=== PATIENT | female | born 1945 | race Caucasian/White ===

== ENCOUNTER 2022-04-04 11:02 | Inpatient (IN) | payer MEDICARE, MEDICAID ==
[~2022-04-04] VITALS: Ht 162.6 cm; Wt 63.5 kg
[2022-04-04] MEDS ORDERED: MAGNESIUM/ALUMINUM HYDROXIDE/SIMETHICONE 30ML UDC PO ONE (11:30)
[2022-04-04] MEDS ORDERED: VISCOUS LIDOCAINE 2% 15 ML UDC MM ONE (11:30)
[2022-04-04] MEDS ORDERED: ONDANSETRON HCL 4MG/2ML INJ IV ONE (11:30)
[2022-04-04] MEDS ORDERED: PANTOPRAZOLE SODIUM 40 MG/VIAL IV NR (12:00)
[2022-04-04 12:06] LABS: BASOPHILS % 0.1 % (0.0-2.0); EOSINOPHILS % 0.7 % (0.0-5.0); HEMATOCRIT. 35.4 % (36.0-48.0); HEMOGLOBIN. 11.9 g/dL (12.0-16.0); LYMPHOCYTES % 13.7 % (20.0-50.0); MEAN CORPUSCULAR HEMOGLOBIN 33.2 pg (28.0-32.0); MEAN CORPUSCULAR VOLUME 98.5 fL (81.0-99.0); MEAN PLATELET VOLUME 8.1 fl (7.4-10.4); MONOCYTES % 5.3 % (2.0-8.0); NEUTROPHILS % 80.2 % (40.0-76.0); PLATELET 188 x1000/uL (130-400); RED BLOOD CELL COUNT 3.59 mill/uL (4.2-5.4)
[2022-04-04 12:11] LABS: CHLORIDE 105 mEq/L (98-107)
[2022-04-04] MEDS ORDERED: ASPIRIN 325MG EC TABLET PO NR (15:30)
[2022-04-04] MEDS ORDERED: NITROGLYCERIN OINT 1GM/INCH UDPKT TD NR (15:30)
[2022-04-04] MEDS ORDERED: FUROSEMIDE 40MG/4ML VIAL IVP NR ×2 (15:30→20:30)
[2022-04-04] MEDS ORDERED: MORPHINE SULFATE 4 MG/ML CPJ (NOT FOR IM USE) IV ONE (17:30)
[2022-04-04] MEDS ORDERED: DOCUSATE SODIUM 100MG CAPSULE PO PRN (19:45)
[2022-04-04] MEDS ORDERED: CLONIDINE 0.1MG TABLET PO PRN (19:45)
[2022-04-04] MEDS ORDERED: MAGNESIUM/ALUMINUM HYDROXIDE/SIMETHICONE 30ML UDC PO PRN (19:45)
[2022-04-04] MEDS ORDERED: IPRATROPIUM/ALBUTEROL 0.5-3(2.5)MG/3ML NEB HHN PRN (19:45)
[2022-04-04] MEDS ORDERED: POTASSIUM CHLORIDE 20MEQ TABLET SR PO SCH (19:45)
[2022-04-04 20:00] VITALS: BP 136/71
[2022-04-04] MEDS ORDERED: ZOLPIDEM TARTRATE 5MG TABLET PO PRN (20:00)
[2022-04-04] MEDS ORDERED: VENL150C52 PO (20:18)
[2022-04-04] MEDS ORDERED: BUPR200T8 PO (20:18)
[2022-04-04] MEDS ORDERED: ATOR40TA70 PO (20:18)
[2022-04-04] MEDS ORDERED: GABA-532 PO (20:18)
[2022-04-04 20:28] VITALS: BP 136/71
[2022-04-04] MEDS ORDERED: FUROSEMIDE 40MG TABLET PO SCH (21:00)
[2022-04-04] MEDS: CYCLOBENZAPRINE 10MG TABLET PO SCH (21:31)
[2022-04-04] MEDS: PANTOPRAZOLE 40MG DR TABLET PO SCH (21:31)
[2022-04-04] MEDS: METOPROLOL TARTRATE 25MG TABLET PO SCH (21:34)
[2022-04-04] MEDS: ENOXAPARIN 40MG/0.4ML SYR SUBCUT SCH (21:35)
[2022-04-04] MEDS: ONDANSETRON HCL 4MG/2ML INJ IV PRN (21:35)
[2022-04-04] MEDS ORDERED: DEXTROSE 50% WATER 50ML SYRINGE IV PRN (22:00)
[2022-04-05] VITALS: BP 131/82
[2022-04-05 04:00] VITALS: BP 129/63
[2022-04-05] MEDS: CYCLOBENZAPRINE 10MG TABLET PO SCH ×3 (05:42→21:07)
[2022-04-05] MEDS: BLOOD SUGAR DIAGNOSTIC STRIP TEST SCH ×4 (05:45→21:34)
[2022-04-05] MEDS: PANTOPRAZOLE 40MG DR TABLET PO SCH (05:45)
[2022-04-05 08:00] VITALS: BP 132/77
[2022-04-05 08:19] LABS: BASOPHILS % 0.1 % (0.0-2.0); HEMATOCRIT. 35.3 % (36.0-48.0); LYMPHOCYTES % 10.2 % (20.0-50.0); MEAN CORPUSCULAR VOLUME 96.9 fL (81.0-99.0); MEAN PLATELET VOLUME 8.4 fl (7.4-10.4); MONOCYTES % 7.8 % (2.0-8.0); NEUTROPHILS % 81.9 % (40.0-76.0); PLATELET 236 x1000/uL (130-400); RED BLOOD CELL COUNT 3.65 mill/uL (4.2-5.4); RED CELL DISTRIBUTION WIDTH 13.3 % (11.6-14.6)
[2022-04-05 08:49] LABS: BG CARBOXYHEMOGLOBIN 1.1 % (0.5-1.5); BG FRACTION INSPIRED OXYGEN 21; BG HCO3 ACT 30.3 mmol/L (22.0-26.0); BG METHEMOGLOBIN 0.1 % (0.0-1.5); BG OXYGEN SATURATION 89.9 % (92.0-98.5); BG OXYHEMOGLOBIN 88.8 % (94.0-97.0); BG PCO2 42.6 mmHg (35.0-45.0); BG PO2 53.4 mmHg (75.0-100.0); BG SAMPLE SITE RIGHT RADIAL; BG TOTAL HEMOGLOBIN 13.1 g/dL (12.0-18.0); BG VENT MODE ROOM AIR
[2022-04-05] MEDS: ACETAMINOPHEN 325MG TABLET PO PRN ×2 (09:01→18:12)
[2022-04-05] MEDS: ONDANSETRON HCL 4MG/2ML INJ IV PRN ×2 (09:02→21:07)
[2022-04-05] MEDS: METOPROLOL TARTRATE 25MG TABLET PO SCH ×2 (09:03→21:09)
[2022-04-05] MEDS ORDERED: DEXTROSE 50% WATER 50ML SYRINGE IV PRN (09:45)
[2022-04-05 09:54] LABS: CHLORIDE 95 mEq/L (98-107)
[2022-04-05 10:10] LABS: HDL CHOLESTEROL 66 mg/dL (40-59); LDL CHOLESTEROL 31 mg/dL (5-100)
[2022-04-05 10:28] LABS: VITAMIN B12 SERUM 452 pg/mL (211-911)
[2022-04-05] MEDS: INSULIN LISPRO 100 UNITS/ML SUBCUT SCH ×3 (11:59→21:00)
[2022-04-05 12:00] VITALS: BP 141/66
[2022-04-05 16:00] VITALS: BP 124/50
[2022-04-05 20:00] VITALS: BP 142/61
[2022-04-05] MEDS: ENOXAPARIN 40MG/0.4ML SYR SUBCUT SCH (21:07)
[2022-04-06] VITALS: BP 119/59
[2022-04-06] MEDS: ACETAMINOPHEN 325MG TABLET PO PRN ×2 (03:00→09:06)
[2022-04-06 04:00] VITALS: BP 102/52
[2022-04-06] MEDS: BLOOD SUGAR DIAGNOSTIC STRIP TEST SCH ×3 (06:34→16:51)
[2022-04-06] MEDS: INSULIN LISPRO 100 UNITS/ML SUBCUT SCH ×3 (06:34→16:51)
[2022-04-06] MEDS: CYCLOBENZAPRINE 10MG TABLET PO SCH ×2 (06:35→13:00)
[2022-04-06 08:00] VITALS: BP 100/49
[2022-04-06] MEDS ORDERED: FUROSEMIDE 20MG TABLET PO SCH (09:00)
[2022-04-06] MEDS: METOPROLOL TARTRATE 25MG TABLET PO SCH (09:00)
[2022-04-06] MEDS ORDERED: FAMOTIDINE 20MG TABLET PO SCH (09:00)
[2022-04-06] MEDS: ONDANSETRON HCL 4MG/2ML INJ IV PRN ×2 (10:27→16:05)
[2022-04-06] MEDS ORDERED: FURO-152 MT (11:53)
[2022-04-06 12:00] VITALS: BP 146/61
[2022-04-06 16:00] VITALS: BP 148/68
[2022-04-06 16:44] LABS: CLARITY URINE CLEAR (CLEAR); COLOR URINE YELLOW (YELLOW); KETONES URINE TRACE (NEGATIVE); LEUKOCYTE ESTERASE URINE TRACE (NEGATIVE); NITRITE URINE NEGATIVE (NEGATIVE); OCCULT BLOOD URINE NEGATIVE (NEGATIVE); PH URINE 6.5 (4.5-8.0); PROTEIN URINE TRACE (NEGATIVE); SPECIFIC GRAVITY URINE 1.028 (1.005-1.030); UROBILINOGEN URINE 0.2 E.U./dL (0.2-1.0)
[2022-04-06 17:54] VITALS: BP 148/68
== END 2022-04-06 19:24 | disposition home or self-care (01) | DRG 391 ==
LOC: ER 11:02 → 7EST 17:47 → EDBEDREQTM 17:56 → EDBEDREQ 17:56 → ENRESERV 19:08
PROVIDERS: ADMIT Internal Medicine Pulmonary Disease; ATTEND Internal Medicine Pulmonary Disease
DX: K29.70 Gastritis, unspecified, without bleeding (principal); I50.23 Acute on chronic systolic (congestive) heart failure; I11.0 Hypertensive heart disease with heart failure; E11.9 Type 2 diabetes mellitus without complications; G89.29 Other chronic pain; F31.9 Bipolar disorder, unspecified; J44.9 Chronic obstructive pulmonary disease, unspecified; K44.9 Diaphragmatic hernia without obstruction or gangrene; M19.90 Unspecified osteoarthritis, unspecified site; Z87.891 Personal history of nicotine dependence; E78.00 Pure hypercholesterolemia, unspecified; Z82.49 Family history of ischemic heart disease and other diseases of the circulatory system; Z88.0 Allergy status to penicillin
CPT/HCPCS: 36415; 36600; 71045; 71250; 72148; 74176; 76705; 80048; 80053; 80061; 81003; 82375; 82607; 82805; 82962; 83036; 83605; 83880; 84443; 84484; 85025; 93005; 93306; 97162; 97165; 99285; C1893; C9113; J1650; J1815; J1940; J2270; J2405